=== PATIENT | female | born 1995 | race African-American/Black ===

== ENCOUNTER 2019-02-22 21:56 | Emergency (ER) | payer OTHER ==
[~2019-02-22] VITALS: Ht 170.2 cm; Wt 61.2 kg
[2019-02-22 22:03] VITALS: BP 154/94; Ht 170.2 cm; Wt 61.2 kg
== END 2019-02-23 01:08 | disposition left against medical advice (07) ==
LOC: ED 21:56
DX: Z53.21 Procedure and treatment not carried out due to patient leaving prior to being seen by health care provider (principal)

== ENCOUNTER 2019-02-23 03:36 | Emergency (ER) | payer OTHER ==
[~2019-02-23] VITALS: Ht 165.1 cm; Wt 69.9 kg
[2019-02-23 07:22] VITALS: BP 124/80
== END 2019-02-23 07:22 | disposition home or self-care (01) ==
LOC: ED 03:36
DX: L25.9 Unspecified contact dermatitis, unspecified cause (principal); E11.9 Type 2 diabetes mellitus without complications